=== PATIENT | female | born 1970 | race Asian ===

== ENCOUNTER 2017-01-13 08:33 | Emergency (ER) | payer SELFPAY ==
[~2017-01-13] VITALS: Ht 157.5 cm; Wt 64.5 kg
[~2017-01-13 08:33] MED LIST: NOCURR
[2017-01-13] MEDS ORDERED: KETOROLAC TROMETHAMINE 30 MG/ML VIAL IVP ONE (10:45)
[2017-01-13 10:54] LABS: BASOPHILS % (AUTO) 0.7 % (0.0-2.0); EOSINOPHILS % (AUTO) 2.7 % (1.0-6.0); HEMATOCRIT 41.4 % (36-46); HEMOGLOBIN 13.5 g/dL (12.0-16.0); LYMPHOCYTES # (AUTO) 2.2 K/uL (1.0-4.8); LYMPHOCYTES % (AUTO) 30.1 % (22.0-44.0); MEAN CORPUSCULAR HEMOGLOBIN 30.8 pg (26.0-34.0); MEAN CORPUSCULAR HGB CONC 32.7 G/dL (31.0-37.0); MEAN CORPUSCULAR VOLUME 94 fL (80-100); MONOCYTES # (AUTO) 0.4 K/uL (0.1-1.0); MONOCYTES % (AUTO) 5.8 % (2.0-9.0); NEUTROPHILS # (AUTO) 4.3 K/uL (1.8-7.7); NEUTROPHILS % (AUTO) 60.7 % (40.0-70.0); PLATELET COUNT (AUTO) 273 K/uL (150-450); RED BLOOD CELL COUNT(AUTO) 4.39 MIL/uL (4.00-5.20); RED CELL DISTRIBUTION WIDTH 12.2 % (11.5-14.5); WHITE BLOOD COUNT (AUTO) 7.1 K/uL (4.5-11.0)
[2017-01-13 11:07] LABS: ANION GAP 11 mmol/L (8-16); CALCIUM, TOTAL 7.9 mg/dL (8.8-10.5); CARBON DIOXIDE 27 mmol/L (22-29); CHLORIDE 103 mmol/L (98-107); GLOMERULAR FILTR. RATE CALC > 60 mL/min (>60); POTASSIUM 3.6 mmol/L (3.5-5.1); SODIUM SERUM 141 mmol/L (136-145); UREA NITROGEN, BLOOD 8 mg/dL (7-18)
[2017-01-13 11:32] LABS: ALANINE AMINOTRANSFERASE 20 U/L (12-78); ALBUMIN 3.9 g/dL (3.4-5.0); ASPARTATE AMINOTRANSFERASE 17 U/L (15-37); BILIRUBIN,TOTAL 0.2 mg/dL (0.1-1.0); CREATINE KINASE, TOTAL 135 U/L (26-192); TOTAL PROTEIN, SERUM 8.4 g/dL (6.4-8.2)
[2017-01-13 11:34] LABS: CREATINE KINASE MB < 0.5 ng/mL (0-5)
[2017-01-13] MEDS ORDERED: CALCIUM GLUCONATE 1,000 MG in DEXTROSE 5%-WATER 50 ML IV ONE (11:45)
[2017-01-13 13:01] VITALS: BP 124/78
== END 2017-01-13 13:12 | disposition home or self-care (01) ==
LOC: EMS 08:36
DX: M62.838 Other muscle spasm (principal); M48.02 Spinal stenosis, cervical region; E83.51 Hypocalcemia; F17.210 Nicotine dependence, cigarettes, uncomplicated
CPT/HCPCS: 36415; 70450; 72125; 80053; 82550; 82553; 83735; 84703; 85025; 93005; 96365; 96375; 99285; J0610; J1885; J7060

== ENCOUNTER 2017-07-20 22:14 | Emergency (ER) | payer SELFPAY ==
[~2017-07-20] VITALS: Ht 154.9 cm; Wt 59.1 kg
[2017-07-20 23:59] LABS: BASOPHILS % (AUTO) 0.8 % (0.0-2.0); EOSINOPHILS % (AUTO) 0.9 % (1.0-6.0); HEMATOCRIT 40.8 % (36-46); HEMOGLOBIN 13.8 g/dL (12.0-16.0); LYMPHOCYTES # (AUTO) 3.5 K/uL (1.0-4.8); LYMPHOCYTES % (AUTO) 46.8 % (22.0-44.0); MEAN CORPUSCULAR HEMOGLOBIN 31.9 pg (26.0-34.0); MEAN CORPUSCULAR HGB CONC 33.8 G/dL (31.0-37.0); MEAN CORPUSCULAR VOLUME 95 fL (80-100); MONOCYTES # (AUTO) 0.6 K/uL (0.1-1.0); MONOCYTES % (AUTO) 7.7 % (2.0-9.0); NEUTROPHILS # (AUTO) 3.3 K/uL (1.8-7.7); NEUTROPHILS % (AUTO) 43.8 % (40.0-70.0); PLATELET COUNT (AUTO) 248 K/uL (150-450); RED BLOOD CELL COUNT(AUTO) 4.32 MIL/uL (4.00-5.20); RED CELL DISTRIBUTION WIDTH 12.7 % (11.5-14.5); WHITE BLOOD COUNT (AUTO) 7.6 K/uL (4.5-11.0)
[2017-07-21 00:03] LABS: ANION GAP 16 mmol/L (8-16); CALCIUM, TOTAL 8.6 mg/dL (8.8-10.5); CARBON DIOXIDE 20 mmol/L (22-29); CHLORIDE 104 mmol/L (98-107); CREATININE 0.74 mg/dL (0.60-1.30); GLOMERULAR FILTR. RATE CALC > 60 mL/min (>60); POTASSIUM 3.4 mmol/L (3.5-5.1); SODIUM SERUM 140 mmol/L (136-145); UREA NITROGEN, BLOOD 10 mg/dL (7-18)
[2017-07-21 00:09] LABS: ALANINE AMINOTRANSFERASE 55 U/L (12-78); ALBUMIN 4.3 g/dL (3.4-5.0); ASPARTATE AMINOTRANSFERASE 52 U/L (15-37); BILIRUBIN,TOTAL 0.2 mg/dL (0.1-1.0)
[2017-07-21 04:12] VITALS: BP 122/81
== END 2017-07-21 04:14 | disposition home or self-care (01) ==
LOC: EMS 22:15
DX: R45.851 Suicidal ideations (principal); F10.129 Alcohol abuse with intoxication, unspecified; Y90.8 Blood alcohol level of 240 mg/100 ml or more
CPT/HCPCS: 36415; 80053; 80307; 85025; 99285; 99406; G0480

== ENCOUNTER 2021-05-19 07:24 | Emergency (ER) | payer OTHER ==
[~2021-05-19] VITALS: Ht 162.6 cm; Wt 63.6 kg
[2021-05-19] MEDS ORDERED: AMLO2.5T96 PO (09:28)
[2021-05-19 09:35] LABS: BASOPHILS % (AUTO) 0.7 % (0.0-2.0); EOSINOPHILS % (AUTO) 1.4 % (1.0-6.0); HEMATOCRIT 39.6 % (36-46); HEMOGLOBIN 13.2 g/dL (12.0-16.0); LYMPHOCYTES # (AUTO) 3.3 K/uL (1.0-4.8); MEAN CORPUSCULAR HGB CONC 33.3 G/dL (31.0-37.0); MEAN CORPUSCULAR VOLUME 90 fL (80-100); MONOCYTES # (AUTO) 0.5 K/uL (0.1-1.0); MONOCYTES % (AUTO) 7.5 % (2.0-9.0); NEUTROPHILS # (AUTO) 3.2 K/uL (1.8-7.7); NEUTROPHILS % (AUTO) 44.4 % (40.0-70.0); PLATELET COUNT (AUTO) 287 K/uL (150-450)
[2021-05-19 09:45] LABS: ANION GAP 11 mmol/L (8-16); CALCIUM, TOTAL 8.3 mg/dL (8.8-10.5); CARBON DIOXIDE 23 mmol/L (22-29); CHLORIDE 105 mmol/L (98-107); CREATININE 0.66 mg/dL (0.60-1.30); GLOMERULAR FILTR. RATE CALC > 60 mL/min (>60); GLUCOSE,RANDOM 90 mg/dL (70-110); POTASSIUM 3.6 mmol/L (3.5-5.1); SODIUM SERUM 139 mmol/L (136-145); UREA NITROGEN, BLOOD 15 mg/dL (7-18)
[2021-05-19 09:57] LABS: ALANINE AMINOTRANSFERASE 26 U/L (12-78); ALBUMIN 3.7 g/dL (3.4-5.0); ALKALINE PHOSPHATASE 60 U/L (46-116); ASPARTATE AMINOTRANSFERASE 18 U/L (15-37); BILIRUBIN,TOTAL 0.2 mg/dL (0.1-1.0); HCG,QUANTITATIVE < 1 mIU/mL (0-6); TOTAL PROTEIN, SERUM 8.7 g/dL (6.4-8.2)
[2021-05-19 10:25] VITALS: BP 111/64
[2021-05-19] MEDS ORDERED: KETOROLAC TROMETHAMINE 30 MG/ML VIAL IVP ONE (10:30)
== END 2021-05-19 10:38 | disposition home or self-care (01) ==
LOC: EMS 07:27
DX: M25.572 Pain in left ankle and joints of left foot (principal); M79.622 Pain in left upper arm; F41.9 Anxiety disorder, unspecified; F17.210 Nicotine dependence, cigarettes, uncomplicated; Z87.828 Personal history of other (healed) physical injury and trauma
CPT/HCPCS: 36415; 71045; 80053; 84484; 84702; 85025; 93005; 96374; 99285; J1885

== ENCOUNTER 2021-08-05 00:58 | Emergency (ER) | payer OTHER ==
[~2021-08-05] VITALS: Ht 162.6 cm; Wt 68.2 kg
[~2021-08-05 00:58] MED LIST changes: +AMLO2.5T96 PO; -NOCURR
[2021-08-05] MEDS ORDERED: SODIUM CHLORIDE 0.9% 1,000 ML IV ONE (02:30)
[2021-08-05] MEDS ORDERED: ACETAMINOPHEN 500 MG TABLET PO ONE (02:30)
[2021-08-05] MEDS ORDERED: ONDANSETRON HCL 4 MG/2 ML VIAL IVP ONE (02:30)
[2021-08-05] MEDS ORDERED: DiphenhydrAMINE HCL 50 MG/ML VIAL IVP ONE (02:30)
[2021-08-05] MEDS ORDERED: METOCLOPRAMIDE HCL 5 MG/ML 2 ML VIAL IVP ONE (02:30)
[2021-08-05 02:51] LABS: BASOPHILS % (AUTO) 1.1 % (0.0-2.0); EOSINOPHILS % (AUTO) 0.9 % (1.0-6.0); HEMATOCRIT 40.4 % (36-46); HEMOGLOBIN 13.7 g/dL (12.0-16.0); LYMPHOCYTES # (AUTO) 3.3 K/uL (1.0-4.8); LYMPHOCYTES % (AUTO) 34.8 % (22.0-44.0); MEAN CORPUSCULAR HEMOGLOBIN 29.9 pg (26.0-34.0); MEAN CORPUSCULAR HGB CONC 33.9 G/dL (31.0-37.0); MEAN CORPUSCULAR VOLUME 88 fL (80-100); MONOCYTES # (AUTO) 0.6 K/uL (0.1-1.0); MONOCYTES % (AUTO) 6.3 % (2.0-9.0); NEUTROPHILS # (AUTO) 5.4 K/uL (1.8-7.7); NEUTROPHILS % (AUTO) 56.9 % (40.0-70.0); PLATELET COUNT (AUTO) 364 K/uL (150-450); RED BLOOD CELL COUNT(AUTO) 4.57 MIL/uL (4.00-5.20); RED CELL DISTRIBUTION WIDTH 13.7 % (11.5-14.5)
[2021-08-05 02:57] LABS: ANION GAP 10 mmol/L (8-16); CALCIUM, TOTAL 8.9 mg/dL (8.8-10.5); CARBON DIOXIDE 29 mmol/L (22-29); CHLORIDE 106 mmol/L (98-107); CREATININE 0.59 mg/dL (0.60-1.30); GLOMERULAR FILTR. RATE CALC > 60 mL/min (>60); GLUCOSE,RANDOM 120 mg/dL (70-110); SODIUM SERUM 145 mmol/L (136-145); UREA NITROGEN, BLOOD 12 mg/dL (7-18)
[2021-08-05 03:18] LABS: B-TYPE NATRIURETIC PEPTIDE 33 pg/mL (0-100)
[2021-08-05 03:23] LABS: ALANINE AMINOTRANSFERASE 31 U/L (12-78); ALKALINE PHOSPHATASE 65 U/L (46-116); ASPARTATE AMINOTRANSFERASE 23 U/L (15-37); BILIRUBIN,TOTAL 0.1 mg/dL (0.1-1.0); CREATINE KINASE, TOTAL ONLY 118 U/L (26-192); HCG,QUANTITATIVE < 1 mIU/mL (0-6); TOTAL PROTEIN, SERUM 9.4 g/dL (6.4-8.2)
[2021-08-05 05:40] VITALS: BP 123/82
== END 2021-08-05 05:49 | disposition home or self-care (01) ==
LOC: EMS 01:01
DX: R51.9 Headache, unspecified (principal); F41.9 Anxiety disorder, unspecified; C71.9 Malignant neoplasm of brain, unspecified; F17.210 Nicotine dependence, cigarettes, uncomplicated
CPT/HCPCS: 36415; 70450; 80053; 82550; 83880; 84484; 84702; 85025; 93005; 96361; 96374; 96375; 99285; G0480; J1200; J2405; J2765; J7030

== ENCOUNTER 2021-08-21 15:06 | Inpatient (IN) | payer MEDICAID, OTHER ==
[~2021-08-21] VITALS: Ht 162.6 cm; Wt 68.2 kg
[2021-08-21 18:56] LABS: BASOPHILS % (AUTO) 1.2 % (0.0-2.0); EOSINOPHILS % (AUTO) 1.6 % (1.0-6.0); HEMATOCRIT 40.4 % (36-46); HEMOGLOBIN 13.5 g/dL (12.0-16.0); LYMPHOCYTES # (AUTO) 3.8 K/uL (1.0-4.8); LYMPHOCYTES % (AUTO) 41.6 % (22.0-44.0); MEAN CORPUSCULAR HEMOGLOBIN 29.9 pg (26.0-34.0); MEAN CORPUSCULAR HGB CONC 33.5 G/dL (31.0-37.0); MEAN CORPUSCULAR VOLUME 89 fL (80-100); MONOCYTES # (AUTO) 0.5 K/uL (0.1-1.0); NEUTROPHILS # (AUTO) 4.6 K/uL (1.8-7.7); NEUTROPHILS % (AUTO) 50.6 % (40.0-70.0); PLATELET COUNT (AUTO) 342 K/uL (150-450); RED BLOOD CELL COUNT(AUTO) 4.53 MIL/uL (4.00-5.20); RED CELL DISTRIBUTION WIDTH 13.1 % (11.5-14.5)
[2021-08-21 19:06] LABS: ANION GAP 15 mmol/L (8-16); CALCIUM, TOTAL 8.6 mg/dL (8.8-10.5); CARBON DIOXIDE 21 mmol/L (22-29); CHLORIDE 107 mmol/L (98-107); CREATININE 0.68 mg/dL (0.60-1.30); GLOMERULAR FILTR. RATE CALC > 60 mL/min (>60); GLUCOSE,RANDOM 76 mg/dL (70-110); POTASSIUM 3.8 mmol/L (3.5-5.1); SODIUM SERUM 143 mmol/L (136-145); UREA NITROGEN, BLOOD 11 mg/dL (7-18)
[2021-08-21 19:12] LABS: ALANINE AMINOTRANSFERASE 26 U/L (12-78); ALBUMIN 3.9 g/dL (3.4-5.0); ALKALINE PHOSPHATASE 69 U/L (46-116); ASPARTATE AMINOTRANSFERASE 23 U/L (15-37); BILIRUBIN,TOTAL 0.1 mg/dL (0.1-1.0); TOTAL PROTEIN, SERUM 9.2 g/dL (6.4-8.2)
[2021-08-21] MEDS ORDERED: ZOLPIDEM TARTRATE 10 MG TABLET PO PRN (19:15)
[2021-08-21] MEDS ORDERED: QUEtiapine FUMARATE 100 MG TABLET PO PRN (19:15)
[2021-08-21] MEDS ORDERED: ACETAMINOPHEN 500 MG TABLET PO ONE (19:30)
[2021-08-21 19:42] LABS: COVID AG,FIA SOURCE NASOPHARYNGEAL
[2021-08-21] MEDS: LORazepam 2 MG TABLET PO PRN (19:49)
[2021-08-21 20:11] LABS: AMPHET/METH SCREEN,URINE NEGATIVE (NEGATIVE); BARBITURATE SCREEN, URINE NEGATIVE (NEGATIVE); BENZODIAZEPINES SCREEN,URINE NEGATIVE (NEGATIVE); CANNABINOID SCREEN,URINE NEGATIVE (NEGATIVE); COCAINE SCREEN,URINE NEGATIVE (NEGATIVE); METHADONE SCREEN, URINE NEGATIVE (NEGATIVE); OPIATE SCREEN,URINE NEGATIVE (NEGATIVE)
[2021-08-21 20:12] LABS: PHENCYCLIDINE SCREEN,URINE NEGATIVE (NEGATIVE)
[2021-08-21 21:28] VITALS: BP 113/71
[2021-08-22 07:21] LABS: CHOL/HDL RATIO 3.9 (3.9-5.7)
[2021-08-22 09:57] VITALS: BP 137/68
[2021-08-22] MEDS ORDERED: NICOTINE 14 MG/24 HOUR PATCH TD PRN (10:00)
[2021-08-22] MEDS ORDERED: MAGNESIUM HYDROXIDE SUSPENSION 30 ML UDCUP PO PRN (10:00)
[2021-08-22] MEDS ORDERED: ACETAMINOPHEN 325 MG TABLET PO PRN (10:00)
[2021-08-22] MEDS ORDERED: ONDANSETRON HCL 4 MG TABLET PO PRN (10:00)
[2021-08-22] MEDS ORDERED: DOCUSATE SODIUM 100 MG CAPSULE PO PRN (10:00)
[2021-08-22] MEDS ORDERED: IBUPROFEN 400 MG TABLET PO PRN (10:00)
[2021-08-22] MEDS ORDERED: PETROLATUM,WHITE 28 GM JELLY TP PRN (10:00)
[2021-08-22] MEDS ORDERED: ALBUTEROL SULFATE HFA 90 MCG/PUFF 8 GM INHALER IH PRN (10:00)
[2021-08-22] MEDS ORDERED: CloNIDine HCL 0.1 MG TABLET PO PRN (10:00)
[2021-08-22] MEDS ORDERED: LOPERAMIDE HCL 2 MG CAPSULE PO PRN (10:00)
[2021-08-22] MEDS ORDERED: GuaiFENesin/D-METHORPHAN [SUGAR-FREE] 200-20MG/10 ML SYRUP UDCUP PO PRN (10:00)
[2021-08-22] MEDS ORDERED: MAG HYDROX/AL HYDROX/SIMETH ES 30 ML SUSPENSION UDCUP PO PRN (10:00)
[2021-08-22] MEDS: ESCITALOPRAM OXALATE 10 MG TABLET PO SCH (10:06)
[2021-08-22 16:45] VITALS: BP 12/72
[2021-08-23 06:25] VITALS: BP 132/80
[2021-08-23] MEDS: ESCITALOPRAM OXALATE 10 MG TABLET PO SCH (08:40)
[2021-08-23] MEDS: AmLODIPine BESYLATE 2.5 MG TABLET PO SCH (08:40)
[2021-08-23 08:45] VITALS: BP 126/76
[2021-08-23] MEDS: LORazepam 2 MG TABLET PO PRN (10:15)
[2021-08-24] MEDS: ESCITALOPRAM OXALATE 10 MG TABLET PO SCH (08:24)
[2021-08-24] MEDS: AmLODIPine BESYLATE 2.5 MG TABLET PO SCH (08:24)
[2021-08-24 09:26] VITALS: BP 132/92
[2021-08-24] MEDS ORDERED: ESCI10 PO (15:50)
[2021-08-24] MEDS ORDERED: AMLO2.5T96 PO (15:50)
== END 2021-08-24 17:00 | disposition home or self-care (01) | DRG 751 ==
LOC: EMS 15:06 → 3EI 20:56
PROVIDERS: ADMIT Psychiatry & Neurology Child & Adolescent Psychiatry; ATTEND Psychiatry & Neurology Child & Adolescent Psychiatry
DX: F33.2 Major depressive disorder, recurrent severe without psychotic features (principal); R45.851 Suicidal ideations; E78.5 Hyperlipidemia, unspecified; F10.10 Alcohol abuse, uncomplicated; F41.0 Panic disorder [episodic paroxysmal anxiety]; G44.209 Tension-type headache, unspecified, not intractable; I10 Essential (primary) hypertension; F41.9 Anxiety disorder, unspecified; Y90.7 Blood alcohol level of 200-239 mg/100 ml; Z20.822 Contact with and (suspected) exposure to COVID-19; Z79.899 Other long term (current) drug therapy; Z87.891 Personal history of nicotine dependence
CPT/HCPCS: 80053; 80061; 85025; 97530; 99285; G0480; Q0162

== ENCOUNTER 2021-09-24 16:56 | Inpatient (IN) | payer MEDICAID, OTHER ==
[~2021-09-24] VITALS: Ht 162.6 cm; Wt 66.5 kg
[~2021-09-24 16:56] MED LIST changes: +ESCI10 PO
[2021-09-24 18:12] LABS: EOSINOPHILS % (AUTO) 1.3 % (1.0-6.0); HEMATOCRIT 42.6 % (36-46); HEMOGLOBIN 14.2 g/dL (12.0-16.0); LYMPHOCYTES # (AUTO) 2.6 K/uL (1.0-4.8); LYMPHOCYTES % (AUTO) 35.7 % (22.0-44.0); MEAN CORPUSCULAR HEMOGLOBIN 29.6 pg (26.0-34.0); MEAN CORPUSCULAR HGB CONC 33.5 G/dL (31.0-37.0); MEAN CORPUSCULAR VOLUME 88 fL (80-100); MONOCYTES # (AUTO) 0.4 K/uL (0.1-1.0); MONOCYTES % (AUTO) 5.7 % (2.0-9.0); NEUTROPHILS # (AUTO) 4.1 K/uL (1.8-7.7); NEUTROPHILS % (AUTO) 56.3 % (40.0-70.0); PLATELET COUNT (AUTO) 316 K/uL (150-450); RED BLOOD CELL COUNT(AUTO) 4.82 MIL/uL (4.00-5.20); RED CELL DISTRIBUTION WIDTH 13.5 % (11.5-14.5)
[2021-09-24 18:30] LABS: ANION GAP 13 mmol/L (8-16); CALCIUM, TOTAL 8.6 mg/dL (8.8-10.5); CARBON DIOXIDE 25 mmol/L (22-29); CHLORIDE 106 mmol/L (98-107); CREATININE 0.67 mg/dL (0.60-1.30); GLOMERULAR FILTR. RATE CALC > 60 mL/min (>60); GLUCOSE,RANDOM 110 mg/dL (70-110); POTASSIUM 3.5 mmol/L (3.5-5.1); SODIUM SERUM 144 mmol/L (136-145); UREA NITROGEN, BLOOD 9 mg/dL (7-18)
[2021-09-24 18:37] LABS: ACETAMINOPHEN < 2 mcg/mL (10-30); ALANINE AMINOTRANSFERASE 35 U/L (12-78); ALBUMIN 4.2 g/dL (3.4-5.0); ALKALINE PHOSPHATASE 84 U/L (46-116); ASPARTATE AMINOTRANSFERASE 26 U/L (15-37); BILIRUBIN,TOTAL 0.1 mg/dL (0.1-1.0); TOTAL PROTEIN, SERUM 9.8 g/dL (6.4-8.2)
[2021-09-24 19:06] LABS: SALICYLATE 0.7 mg/dL (2.8-20.0)
[2021-09-24 19:48] LABS: APPEARANCE,URINE CLEAR (CLEAR); BILIRUBIN,URINE NEGATIVE (NEGATIVE); GLUCOSE, URINE (UA) NEGATIVE (NEGATIVE); KETONES,URINE NEGATIVE (NEGATIVE); LEUKOCYTE ESTERASE ,URINE TRACE (NEGATIVE); NITRATE,URINE NEGATIVE (NEGATIVE); OCCULT BLOOD,URINE TRACE (NEGATIVE); PROTEIN,URINE NEGATIVE (NEGATIVE); UROBILINOGEN,URINE 0.2 mg/dL (<=1.0)
[2021-09-24 19:55] LABS: AMPHET/METH SCREEN,URINE NEGATIVE (NEGATIVE); BARBITURATE SCREEN, URINE NEGATIVE (NEGATIVE); BENZODIAZEPINES SCREEN,URINE NEGATIVE (NEGATIVE); CANNABINOID SCREEN,URINE NEGATIVE (NEGATIVE); COCAINE SCREEN,URINE NEGATIVE (NEGATIVE); METHADONE SCREEN, URINE NEGATIVE (NEGATIVE); OPIATE SCREEN,URINE NEGATIVE (NEGATIVE)
[2021-09-24 19:58] LABS: PHENCYCLIDINE SCREEN,URINE NEGATIVE (NEGATIVE)
[2021-09-24 20:03] LABS: BACTERIA,URINE Few /HPF (None Seen); WBC,URINE 0-2 /HPF (0-5)
[2021-09-24 21:28] LABS: COVID AG,FIA SOURCE NASOPHARYNGEAL
[2021-09-24] MEDS ORDERED: QUEtiapine FUMARATE 100 MG TABLET PO PRN (22:00)
[2021-09-24] MEDS ORDERED: ZOLPIDEM TARTRATE 10 MG TABLET PO PRN (22:00)
[2021-09-24 22:37] LABS: APPEARANCE,URINE CLEAR (CLEAR); BILIRUBIN,URINE NEGATIVE (NEGATIVE); GLUCOSE, URINE (UA) NEGATIVE (NEGATIVE); KETONES,URINE NEGATIVE (NEGATIVE); LEUKOCYTE ESTERASE ,URINE SMALL (NEGATIVE); NITRATE,URINE NEGATIVE (NEGATIVE); OCCULT BLOOD,URINE TRACE (NEGATIVE); PROTEIN,URINE NEGATIVE (NEGATIVE); UROBILINOGEN,URINE 0.2 mg/dL (<=1.0)
[2021-09-24 22:41] LABS: BACTERIA,URINE Few /HPF (None Seen); WBC,URINE 0-2 /HPF (0-5)
[2021-09-25] MEDS: LORazepam 2 MG TABLET PO PRN ×2 (01:24→12:18)
[2021-09-25 01:39] LABS: CHOL/HDL RATIO 3.6 (3.9-5.7)
[2021-09-25 03:04] VITALS: BP 134/73
[2021-09-25] MEDS ORDERED: PNEUMOCOCCAL VACCINE POLYVALENT 0.5 ML VIAL [PPSV23] IM. ONE (03:30)
[2021-09-25] MEDS ORDERED: INFLUENZA VIRUS VACCINE QVS 2021-22 (6MO+)/PF 60 MCG/0.5 ML SYRINGE IM. ONE (03:30)
[2021-09-25 08:20] VITALS: BP 125/76
[2021-09-25] MEDS ORDERED: MAGNESIUM HYDROXIDE SUSPENSION 30 ML UDCUP PO PRN (11:30)
[2021-09-25] MEDS ORDERED: PETROLATUM,WHITE 28 GM JELLY TP PRN (11:30)
[2021-09-25] MEDS ORDERED: ACETAMINOPHEN 325 MG TABLET PO PRN (11:30)
[2021-09-25] MEDS ORDERED: ALBUTEROL SULFATE HFA 90 MCG/PUFF 8 GM INHALER IH PRN (11:30)
[2021-09-25] MEDS ORDERED: NICOTINE 14 MG/24 HOUR PATCH TD PRN (11:30)
[2021-09-25] MEDS ORDERED: ONDANSETRON HCL 4 MG TABLET PO PRN (11:30)
[2021-09-25] MEDS ORDERED: DOCUSATE SODIUM 100 MG CAPSULE PO PRN (11:30)
[2021-09-25] MEDS ORDERED: LOPERAMIDE HCL 2 MG CAPSULE PO PRN (11:30)
[2021-09-25] MEDS ORDERED: MAG HYDROX/AL HYDROX/SIMETH ES 30 ML SUSPENSION UDCUP PO PRN (11:30)
[2021-09-25] MEDS ORDERED: GuaiFENesin/D-METHORPHAN [SUGAR-FREE] 200-20MG/10 ML SYRUP UDCUP PO PRN (11:30)
[2021-09-25] MEDS ORDERED: CloNIDine HCL 0.1 MG TABLET PO PRN (11:30)
[2021-09-25] MEDS: ESCITALOPRAM OXALATE 10 MG TABLET PO SCH (12:18)
[2021-09-25 16:23] VITALS: BP 105/77
[2021-09-26 06:01] VITALS: BP 124/73
[2021-09-26] MEDS: IBUPROFEN 400 MG TABLET PO PRN (08:53)
[2021-09-26] MEDS: LORazepam 2 MG TABLET PO PRN (08:53)
[2021-09-26 08:54] VITALS: BP 121/75
[2021-09-26] MEDS: ESCITALOPRAM OXALATE 10 MG TABLET PO SCH (08:54)
[2021-09-26] MEDS: AmLODIPine BESYLATE 2.5 MG TABLET PO SCH (08:54)
[2021-09-26 16:33] VITALS: BP 109/85
[2021-09-27 06:05] VITALS: BP 121/70
[2021-09-27 08:03] VITALS: BP 125/60
[2021-09-27] MEDS: IBUPROFEN 400 MG TABLET PO PRN (08:03)
[2021-09-27] MEDS: AmLODIPine BESYLATE 2.5 MG TABLET PO SCH (08:04)
[2021-09-27] MEDS: ESCITALOPRAM OXALATE 10 MG TABLET PO SCH (08:04)
[2021-09-27 08:48] VITALS: BP 125/60
[2021-09-27 16:27] VITALS: BP 117/73
== END 2021-09-27 17:30 | disposition home or self-care (01) | DRG 751 ==
LOC: EMS 16:56 → B2S 09-25 00:30
PROVIDERS: ADMIT Psychiatry & Neurology Psychiatry; ATTEND Psychiatry & Neurology Child & Adolescent Psychiatry
DX: F33.2 Major depressive disorder, recurrent severe without psychotic features (principal); R45.851 Suicidal ideations; Z91.14 Patient's other noncompliance with medication regimen; E78.5 Hyperlipidemia, unspecified; Z20.822 Contact with and (suspected) exposure to COVID-19; F10.129 Alcohol abuse with intoxication, unspecified; F41.9 Anxiety disorder, unspecified; G47.00 Insomnia, unspecified; I10 Essential (primary) hypertension; Y90.8 Blood alcohol level of 240 mg/100 ml or more
CPT/HCPCS: 80053; 80061; 81001; 85025; 90686; 90732; 99285; G0480; G0481

== ENCOUNTER 2021-09-28 21:19 | Emergency (ER) | payer MEDICAID, OTHER ==
[~2021-09-28] VITALS: Ht 162.6 cm; Wt 68.2 kg
[2021-09-28 23:19] VITALS: BP 138/76
[2021-09-28 23:26] LABS: BASOPHILS % (AUTO) 0.5 % (0.0-2.0); EOSINOPHILS % (AUTO) 0.8 % (1.0-6.0); HEMATOCRIT 39.3 % (36-46); HEMOGLOBIN 13.5 g/dL (12.0-16.0); LYMPHOCYTES # (AUTO) 2.7 K/uL (1.0-4.8); LYMPHOCYTES % (AUTO) 27.5 % (22.0-44.0); MEAN CORPUSCULAR HEMOGLOBIN 29.9 pg (26.0-34.0); MEAN CORPUSCULAR HGB CONC 34.3 G/dL (31.0-37.0); MEAN CORPUSCULAR VOLUME 87 fL (80-100); MONOCYTES # (AUTO) 0.6 K/uL (0.1-1.0); MONOCYTES % (AUTO) 6.5 % (2.0-9.0); NEUTROPHILS # (AUTO) 6.2 K/uL (1.8-7.7); NEUTROPHILS % (AUTO) 64.7 % (40.0-70.0); PLATELET COUNT (AUTO) 307 K/uL (150-450); RED CELL DISTRIBUTION WIDTH 13.8 % (11.5-14.5)
[2021-09-28 23:38] LABS: ANION GAP 7 mmol/L (8-16); CALCIUM, TOTAL 9.4 mg/dL (8.8-10.5); CARBON DIOXIDE 27 mmol/L (22-29); CHLORIDE 103 mmol/L (98-107); GLOMERULAR FILTR. RATE CALC > 60 mL/min (>60); GLUCOSE,RANDOM 108 mg/dL (70-110); POTASSIUM 4.2 mmol/L (3.5-5.1); SODIUM SERUM 137 mmol/L (136-145); UREA NITROGEN, BLOOD 9 mg/dL (7-18)
[2021-09-28 23:46] LABS: COVID AG,FIA SOURCE NASOPHARYNGEAL
[2021-09-28 23:49] LABS: ALANINE AMINOTRANSFERASE 44 U/L (12-78); ALBUMIN 3.9 g/dL (3.4-5.0); ALKALINE PHOSPHATASE 81 U/L (46-116); ASPARTATE AMINOTRANSFERASE 36 U/L (15-37); BILIRUBIN,TOTAL 0.1 mg/dL (0.1-1.0); HCG,QUANTITATIVE < 1 mIU/mL (0-6); TOTAL PROTEIN, SERUM 9.7 g/dL (6.4-8.2)
== END 2021-09-29 02:52 | disposition home or self-care (01) ==
LOC: EMS 21:27
DX: F10.129 Alcohol abuse with intoxication, unspecified (principal); F32.9 Major depressive disorder, single episode, unspecified; F41.9 Anxiety disorder, unspecified; F17.210 Nicotine dependence, cigarettes, uncomplicated; Z79.899 Other long term (current) drug therapy; Z20.822 Contact with and (suspected) exposure to COVID-19; Y90.6 Blood alcohol level of 120-199 mg/100 ml
CPT/HCPCS: 36415; 80053; 84702; 85025; 87426; 99285; G0480

== ENCOUNTER 2022-01-28 13:22 | Inpatient (IN) | payer MEDICAID, OTHER ==
[~2022-01-28] VITALS: Ht 162.6 cm; Wt 68.0 kg
[2022-01-28 14:33] LABS: BASOPHILS % (AUTO) 1.1 % (0.0-2.0); EOSINOPHILS % (AUTO) 1.4 % (1.0-6.0); HEMATOCRIT 37.7 % (36-46); HEMOGLOBIN 12.5 g/dL (12.0-16.0); LYMPHOCYTES # (AUTO) 3.3 K/uL (1.0-4.8); LYMPHOCYTES % (AUTO) 47.3 % (22.0-44.0); MEAN CORPUSCULAR HGB CONC 33.3 G/dL (31.0-37.0); MEAN CORPUSCULAR VOLUME 87 fL (80-100); MONOCYTES # (AUTO) 0.5 K/uL (0.1-1.0); MONOCYTES % (AUTO) 6.8 % (2.0-9.0); NEUTROPHILS % (AUTO) 43.4 % (40.0-70.0); PLATELET COUNT (AUTO) 379 K/uL (150-450); RED BLOOD CELL COUNT(AUTO) 4.32 MIL/uL (4.00-5.20); RED CELL DISTRIBUTION WIDTH 13.3 % (11.5-14.5)
[2022-01-28 14:44] LABS: ANION GAP 10 mmol/L (8-16); CALCIUM, TOTAL 8.1 mg/dL (8.8-10.5); CARBON DIOXIDE 25 mmol/L (22-29); CHLORIDE 103 mmol/L (98-107); GLOMERULAR FILTR. RATE CALC > 60 mL/min (>60); GLUCOSE,RANDOM 79 mg/dL (70-110); POTASSIUM 3.7 mmol/L (3.5-5.1); SODIUM SERUM 138 mmol/L (136-145); UREA NITROGEN, BLOOD 13 mg/dL (7-18)
[2022-01-28 14:49] LABS: ALANINE AMINOTRANSFERASE 27 U/L (12-78); ALBUMIN 3.7 g/dL (3.4-5.0); ALKALINE PHOSPHATASE 69 U/L (46-116); ASPARTATE AMINOTRANSFERASE 28 U/L (15-37); BILIRUBIN,TOTAL 0.2 mg/dL (0.1-1.0); TOTAL PROTEIN, SERUM 8.8 g/dL (6.4-8.2)
[2022-01-28 15:08] LABS: AMPHET/METH SCREEN,URINE NEGATIVE (NEGATIVE); BARBITURATE SCREEN, URINE NEGATIVE (NEGATIVE); BENZODIAZEPINES SCREEN,URINE POSITIVE (NEGATIVE); CANNABINOID SCREEN,URINE POSITIVE (NEGATIVE); COCAINE SCREEN,URINE NEGATIVE (NEGATIVE); METHADONE SCREEN, URINE NEGATIVE (NEGATIVE); OPIATE SCREEN,URINE NEGATIVE (NEGATIVE)
[2022-01-28 15:11] LABS: PHENCYCLIDINE SCREEN,URINE NEGATIVE (NEGATIVE)
[2022-01-28] MEDS ORDERED: OLANZapine 5 MG RAPDIS TABLET PO PRN (15:45)
[2022-01-28] MEDS ORDERED: LORazepam 2 MG TABLET PO PRN (15:45)
[2022-01-28] MEDS ORDERED: ESCI20TA37 PO (15:45)
[2022-01-28] MEDS ORDERED: ZOLPIDEM TARTRATE 10 MG TABLET PO PRN (15:45)
[2022-01-28 17:56] LABS: COVID AG,FIA SOURCE NASAL SWAB
[2022-01-28 19:05] VITALS: BP 137/66
[2022-01-28] MEDS ORDERED: LORazepam 2 MG/ML VIAL IM ONE (20:00)
[2022-01-28] MEDS ORDERED: ONDANSETRON HCL 4 MG/2 ML VIAL IM ONE (20:00)
[2022-01-28] MEDS ORDERED: CYANOCOBALAMIN 1,000 MCG/ML VIAL IM ONE (21:45)
[2022-01-28] MEDS ORDERED: HydrOXYzine PAMOATE 50 MG CAPSULE PO PRN (21:45)
[2022-01-28] MEDS ORDERED: TUBERCULIN, PURIFIED PROTEIN DERIVATIVE 5 TU/0.1 ML SYRINGE ID ONE (21:45)
[2022-01-28] MEDS ORDERED: DIAZEPAM 10 MG TABLET PO PRN (21:45)
[2022-01-28] MEDS ORDERED: MAGNESIUM HYDROXIDE SUSPENSION 30 ML UDCUP PO PRN (21:45)
[2022-01-28] MEDS ORDERED: LOPERAMIDE HCL 2 MG CAPSULE PO PRN ×2 (21:45)
[2022-01-28] MEDS ORDERED: MAG HYDROX/AL HYDROX/SIMETH ES 30 ML SUSPENSION UDCUP PO PRN (21:45)
[2022-01-28] MEDS ORDERED: GuaiFENesin/D-METHORPHAN [SUGAR-FREE] 200-20MG/10 ML SYRUP UDCUP PO PRN (21:45)
[2022-01-28] MEDS ORDERED: PROMETHAZINE HCL 25 MG TABLET PO PRN (21:45)
[2022-01-28 22:30] VITALS: BP 116/65
[2022-01-29] MEDS ORDERED: DIAZEPAM 10 MG TABLET PO PRN (07:00)
[2022-01-29 07:44] LABS: CHOL/HDL RATIO 3.5 (3.9-5.7); FREE T4 (FREE THYROXINE) 1.08 ng/dL (0.76-1.46); THYROID STIMULATING HORMONE 1.04 uIU/mL (0.36-3.74)
[2022-01-29] MEDS: FOLIC ACID 1 MG TABLET PO SCH (09:02)
[2022-01-29] MEDS: OMEGA-3/DHA/EPA/FISH OIL 1,000 MG CAPSULE PO SCH (09:02)
[2022-01-29] MEDS: PARoxetine HCL 20 MG TABLET PO SCH (09:02)
[2022-01-29] MEDS: THIAMINE 100 MG TABLET PO SCH ×2 (09:02→16:09)
[2022-01-29] MEDS: NALTREXONE HCL 50 MG TABLET PO SCH (09:02)
[2022-01-29] MEDS: DIAZEPAM 10 MG TABLET PO SCH ×4 (09:03→21:34)
[2022-01-29] MEDS: MULTIVITAMINS WITH MINERALS, THERAPEUTIC TABLET PO SCH (09:04)
[2022-01-29 09:49] VITALS: BP 119/70
[2022-01-29 10:00] VITALS: BP 120/71
[2022-01-29 11:05] VITALS: BP 119/70
[2022-01-29] MEDS: ACETAMINOPHEN 325 MG TABLET PO PRN (11:10)
[2022-01-29] MEDS ORDERED: ONDANSETRON HCL 4 MG/2 ML VIAL IM PRN (11:15)
[2022-01-29 16:00] VITALS: BP 121/77
[2022-01-29 18:00] VITALS: BP 116/67
[2022-01-29] MEDS ORDERED: CYANOCOBALAMIN 1,000 MCG/ML VIAL IM ONE (19:15)
[2022-01-29] MEDS: MELATONIN 5 MG TABLET PO SCH (21:34)
[2022-01-29 22:00] VITALS: BP 115/56
[2022-01-30] VITALS (8 sets, daily range): BP systolic 112–136; BP diastolic 58–76
[2022-01-30] MEDS: MULTIVITAMINS WITH MINERALS, THERAPEUTIC TABLET PO SCH (09:05)
[2022-01-30] MEDS: THIAMINE 100 MG TABLET PO SCH ×2 (09:05→16:10)
[2022-01-30] MEDS: DIAZEPAM 10 MG TABLET PO SCH ×4 (09:05→20:06)
[2022-01-30] MEDS: NALTREXONE HCL 50 MG TABLET PO SCH (09:05)
[2022-01-30] MEDS: OMEGA-3/DHA/EPA/FISH OIL 1,000 MG CAPSULE PO SCH (09:05)
[2022-01-30] MEDS: PARoxetine HCL 20 MG TABLET PO SCH (09:05)
[2022-01-30] MEDS: FOLIC ACID 1 MG TABLET PO SCH (09:05)
[2022-01-30] MEDS: ACETAMINOPHEN 325 MG TABLET PO PRN (14:20)
[2022-01-30] MEDS ORDERED: GADOTERATE MEGLUMINE 10 MMOL/20 ML VIAL IVP ONE (15:09)
[2022-01-30] MEDS ORDERED: OMEG-108 PO (19:18)
[2022-01-30] MEDS ORDERED: PARO-37 PO (19:18)
[2022-01-30] MEDS ORDERED: NALT50TA PO (19:18)
[2022-01-30] MEDS ORDERED: MELA5TAB40 PO (19:18)
[2022-01-30] MEDS: MELATONIN 5 MG TABLET PO SCH (20:06)
[2022-01-31 06:18] VITALS: BP 112/56
[2022-01-31] MEDS ORDERED: DIAZEPAM 5 MG TABLET PO PRN (07:00)
[2022-01-31] MEDS ORDERED: NALTREXONE HCL 50 MG TABLET PO SCH (09:00)
[2022-01-31] MEDS ORDERED: DIAZEPAM 5 MG TABLET PO SCH (09:00)
[2022-01-31 09:06] VITALS: BP 99/59
[2022-01-31 09:28] VITALS: BP 117/59
[2022-01-31] MEDS: ACETAMINOPHEN 325 MG TABLET PO PRN (09:32)
[2022-01-31] MEDS: THIAMINE 100 MG TABLET PO SCH (09:33)
[2022-01-31] MEDS: PARoxetine HCL 20 MG TABLET PO SCH (09:33)
[2022-01-31] MEDS: MULTIVITAMINS WITH MINERALS, THERAPEUTIC TABLET PO SCH (09:33)
[2022-01-31] MEDS: FOLIC ACID 1 MG TABLET PO SCH (09:33)
[2022-01-31] MEDS: NALTREXONE HCL 50 MG TABLET PO SCH (09:33)
[2022-01-31] MEDS: OMEGA-3/DHA/EPA/FISH OIL 1,000 MG CAPSULE PO SCH (09:33)
[2022-01-31 09:48] VITALS: BP 99/59
[2022-02-01] MEDS ORDERED: DIAZEPAM 5 MG TABLET PO PRN (07:00)
== END 2022-01-31 11:28 | disposition home or self-care (01) | DRG 754 ==
LOC: EMS 13:22 → 3EI 15:37
PROVIDERS: ADMIT Psychiatry & Neurology Psychiatry; ATTEND Psychiatry & Neurology Psychiatry
DX: F32.9 Major depressive disorder, single episode, unspecified (principal); R45.851 Suicidal ideations; E78.00 Pure hypercholesterolemia, unspecified; Z20.822 Contact with and (suspected) exposure to COVID-19; F12.90 Cannabis use, unspecified, uncomplicated; F41.9 Anxiety disorder, unspecified; F17.210 Nicotine dependence, cigarettes, uncomplicated; I10 Essential (primary) hypertension; K52.9 Noninfective gastroenteritis and colitis, unspecified; Z55.9 Problems related to education and literacy, unspecified; Z65.3 Problems related to other legal circumstances; Z59.9 Problem related to housing and economic circumstances, unspecified; Z63.9 Problem related to primary support group, unspecified
CPT/HCPCS: 80053; 80061; 83036; 84439; 84443; 85025; 86592; 99285; G0480; J2060; J2405; J3420; Q9967

== ENCOUNTER 2022-05-13 19:31 | Emergency (ER) | payer MEDICAID, OTHER ==
[~2022-05-13] VITALS: Ht 162.6 cm; Wt 72.7 kg
[~2022-05-13 19:31] MED LIST changes: -AMLO2.5T96 PO; -ESCI10 PO; +MELA5TAB40 PO; +NALT50TA PO; +OMEG-108 PO; +PARO-37 PO
[2022-05-13] MEDS ORDERED: KETOROLAC TROMETHAMINE 30 MG/ML VIAL IM ONE (20:45)
[2022-05-13 21:03] VITALS: BP 142/79
== END 2022-05-13 21:06 | disposition home or self-care (01) ==
LOC: EMS 19:39
DX: M25.572 Pain in left ankle and joints of left foot (principal); G89.29 Other chronic pain; F41.9 Anxiety disorder, unspecified; F32.A Depression, unspecified; F17.210 Nicotine dependence, cigarettes, uncomplicated; Z87.898 Personal history of other specified conditions; Z98.890 Other specified postprocedural states
CPT/HCPCS: 99283; 96372; J1885

== ENCOUNTER 2022-09-07 17:08 | Inpatient (IN) | payer MEDICAID, OTHER ==
[~2022-09-07] VITALS: Ht 162.6 cm; Wt 72.1 kg
[~2022-09-07 17:08] MED LIST changes: -OMEG-108 PO; +OMEG-135 PO
[2022-09-07 18:33] LABS: BASOPHILS % (AUTO) 0.9 % (0.0-2.0); EOSINOPHILS % (AUTO) 2.1 % (1.0-6.0); HEMOGLOBIN 12.8 g/dL (12.0-16.0); LYMPHOCYTES # (AUTO) 3.1 K/uL (1.0-4.8); LYMPHOCYTES % (AUTO) 41.6 % (22.0-44.0); MEAN CORPUSCULAR HEMOGLOBIN 29.5 pg (26.0-34.0); MEAN CORPUSCULAR HGB CONC 32.9 G/dL (31.0-37.0); MEAN CORPUSCULAR VOLUME 90 fL (80-100); MONOCYTES # (AUTO) 0.5 K/uL (0.1-1.0); MONOCYTES % (AUTO) 6.3 % (2.0-9.0); NEUTROPHILS # (AUTO) 3.6 K/uL (1.8-7.7); NEUTROPHILS % (AUTO) 49.1 % (40.0-70.0); PLATELET COUNT (AUTO) 294 K/uL (150-450); RED BLOOD CELL COUNT(AUTO) 4.35 MIL/uL (4.00-5.20); RED CELL DISTRIBUTION WIDTH 13.9 % (11.5-14.5)
[2022-09-07 18:48] LABS: ANION GAP 12 mmol/L (8-16); CARBON DIOXIDE 22 mmol/L (22-29); CHLORIDE 103 mmol/L (98-107); CREATININE 0.77 mg/dL (0.60-1.30); GLOMERULAR FILTR. RATE CALC > 60 mL/min (>60); GLUCOSE,RANDOM 91 mg/dL (70-110); POTASSIUM 3.1 mmol/L (3.5-5.1); SODIUM SERUM 137 mmol/L (136-145); UREA NITROGEN, BLOOD 9 mg/dL (7-18)
[2022-09-07 18:54] LABS: ALANINE AMINOTRANSFERASE 23 U/L (12-78); ALKALINE PHOSPHATASE 70 U/L (46-116); ASPARTATE AMINOTRANSFERASE 22 U/L (15-37); BILIRUBIN,TOTAL 0.2 mg/dL (0.1-1.0)
[2022-09-07 19:08] LABS: AMPHET/METH SCREEN,URINE NEGATIVE (NEGATIVE); BARBITURATE SCREEN, URINE NEGATIVE (NEGATIVE); BENZODIAZEPINES SCREEN,URINE NEGATIVE (NEGATIVE); CANNABINOID SCREEN,URINE NEGATIVE (NEGATIVE); COCAINE SCREEN,URINE NEGATIVE (NEGATIVE); METHADONE SCREEN, URINE NEGATIVE (NEGATIVE); OPIATE SCREEN,URINE NEGATIVE (NEGATIVE); PHENCYCLIDINE SCREEN,URINE NEGATIVE (NEGATIVE)
[2022-09-07 19:22] LABS: ACETAMINOPHEN < 2 mcg/mL (10-30)
[2022-09-07] MEDS ORDERED: POTASSIUM CHLORIDE 10% 40 MEQ/30 ML LIQUID UDCUP PO ONE (21:45)
[2022-09-07 22:02] LABS: COVID AG,FIA SOURCE NASAL SWAB
[2022-09-07] MEDS ORDERED: ZOLPIDEM TARTRATE 10 MG TABLET PO PRN (22:15)
[2022-09-07] MEDS ORDERED: HALOPERIDOL 5 MG TABLET PO PRN (22:15)
[2022-09-07] MEDS ORDERED: LORazepam 2 MG TABLET PO PRN (22:15)
[2022-09-08 00:27] LABS: ALANINE AMINOTRANSFERASE 21 U/L (12-78); ALBUMIN 3.7 g/dL (3.4-5.0); ALKALINE PHOSPHATASE 63 U/L (46-116); ANION GAP 10 mmol/L (8-16); ASPARTATE AMINOTRANSFERASE 20 U/L (15-37); BILIRUBIN,TOTAL 0.2 mg/dL (0.1-1.0); CALCIUM, TOTAL 8.5 mg/dL (8.8-10.5); CARBON DIOXIDE 24 mmol/L (22-29); CHLORIDE 103 mmol/L (98-107); CREATININE 0.66 mg/dL (0.60-1.30); GLUCOSE,RANDOM 86 mg/dL (70-110); POTASSIUM 3.1 mmol/L (3.5-5.1); SODIUM SERUM 137 mmol/L (136-145); TOTAL PROTEIN, SERUM 8.3 g/dL (6.4-8.2); UREA NITROGEN, BLOOD 7 mg/dL (7-18)
[2022-09-08 00:29] LABS: GLOMERULAR FILTR. RATE CALC > 60 mL/min (>60)
[2022-09-08] MEDS ORDERED: POTASSIUM CHLORIDE 20 MEQ ER TABLET ONE (01:10)
[2022-09-08] MEDS ORDERED: POTASSIUM CHLORIDE 20 MEQ ER TABLET PO ONE (01:15)
[2022-09-08 03:15] VITALS: BP 123/83
[2022-09-08] MEDS ORDERED: INFLUENZA VIRUS VACCINE QVS 2022-23 (6MO+)/PF 60 MCG/0.5 ML SYRINGE IM. ONE (05:15)
[2022-09-08 08:31] VITALS: BP 122/85
[2022-09-08] MEDS: PARoxetine HCL 20 MG TABLET PO SCH (10:59)
[2022-09-08] MEDS ORDERED: MAGNESIUM HYDROXIDE SUSPENSION 30 ML UDCUP PO PRN (12:15)
[2022-09-08] MEDS ORDERED: ALBUTEROL SULFATE HFA 90 MCG/PUFF 8 GM INHALER IH PRN (12:15)
[2022-09-08] MEDS ORDERED: ONDANSETRON HCL 4 MG TABLET PO PRN (12:15)
[2022-09-08] MEDS ORDERED: DOCUSATE SODIUM 100 MG CAPSULE PO PRN (12:15)
[2022-09-08] MEDS ORDERED: LOPERAMIDE HCL 2 MG CAPSULE PO PRN (12:15)
[2022-09-08] MEDS ORDERED: ACETAMINOPHEN 325 MG TABLET PO PRN (12:15)
[2022-09-08] MEDS ORDERED: MAG HYDROX/AL HYDROX/SIMETH ES 30 ML SUSPENSION UDCUP PO PRN (12:15)
[2022-09-08] MEDS ORDERED: GuaiFENesin/D-METHORPHAN [SUGAR-FREE] 200-20MG/10 ML SYRUP UDCUP PO PRN (12:15)
[2022-09-08] MEDS ORDERED: NICOTINE 14 MG/24 HOUR PATCH TD PRN (12:15)
[2022-09-08] MEDS ORDERED: PETROLATUM,WHITE 28 GM JELLY TP PRN (12:15)
[2022-09-08] MEDS ORDERED: CloNIDine HCL 0.1 MG TABLET PO PRN (12:15)
[2022-09-08] MEDS: MELATONIN 3 MG TABLET PO SCH (20:12)
[2022-09-08 20:53] VITALS: BP 128/82
[2022-09-09 09:13] VITALS: BP 121/56
[2022-09-09] MEDS: PARoxetine HCL 20 MG TABLET PO SCH (10:07)
[2022-09-09] MEDS: IBUPROFEN 400 MG TABLET PO PRN (12:41)
[2022-09-09] MEDS: MELATONIN 3 MG TABLET PO SCH (20:34)
[2022-09-09 20:52] VITALS: BP 138/85
[2022-09-10] MEDS: PARoxetine HCL 20 MG TABLET PO SCH (08:24)
[2022-09-10 08:43] VITALS: BP 112/79
[2022-09-10] MEDS: IBUPROFEN 400 MG TABLET PO PRN (15:41)
[2022-09-10 20:25] VITALS: BP 135/83
[2022-09-10] MEDS: MELATONIN 3 MG TABLET PO SCH (20:44)
[2022-09-11 08:29] VITALS: BP 117/61
[2022-09-11] MEDS: PARoxetine HCL 20 MG TABLET PO SCH (08:29)
[2022-09-11] MEDS ORDERED: PARO-37 PO (10:01)
[2022-09-11] MEDS ORDERED: MELA3TAB89 PO (10:01)
== END 2022-09-11 10:00 | disposition home or self-care (01) | DRG 754 ==
LOC: EMS 17:52 → B2S 09-08 00:59
PROVIDERS: ADMIT Psychiatry & Neurology Child & Adolescent Psychiatry; ATTEND Psychiatry & Neurology Child & Adolescent Psychiatry
DX: F32.9 Major depressive disorder, single episode, unspecified (principal); R45.851 Suicidal ideations; Z20.822 Contact with and (suspected) exposure to COVID-19; E87.6 Hypokalemia; F10.129 Alcohol abuse with intoxication, unspecified; I10 Essential (primary) hypertension; Y90.9 Presence of alcohol in blood, level not specified; K21.9 Gastro-esophageal reflux disease without esophagitis; Z87.891 Personal history of nicotine dependence
CPT/HCPCS: 80053; 80307; 84703; 85025; 93005; 99285; G0480; G0481

== ENCOUNTER 2023-02-27 17:17 | Inpatient (IN) | payer OTHER ==
[~2023-02-27] VITALS: Ht 152.4 cm; Wt 68.7 kg
[~2023-02-27 17:17] MED LIST changes: +ASPI-1450 PO; +ATOR20TA86 PO; -NALT50TA PO; -OMEG-135 PO
[2023-02-27 17:41] LABS: BASOPHILS % (AUTO) 1.4 % (0.0-2.0); EOSINOPHILS % (AUTO) 1.4 % (1.0-6.0); HEMATOCRIT 39.5 % (36-46); HEMOGLOBIN 12.8 g/dL (12.0-16.0); LYMPHOCYTES # (AUTO) 2.3 K/uL (1.0-4.8); LYMPHOCYTES % (AUTO) 30.2 % (22.0-44.0); MEAN CORPUSCULAR HEMOGLOBIN 29.1 pg (26.0-34.0); MEAN CORPUSCULAR HGB CONC 32.4 G/dL (31.0-37.0); MEAN CORPUSCULAR VOLUME 90 fL (80-100); MONOCYTES # (AUTO) 0.5 K/uL (0.1-1.0); MONOCYTES % (AUTO) 7.1 % (2.0-9.0); NEUTROPHILS # (AUTO) 4.5 K/uL (1.8-7.7); NEUTROPHILS % (AUTO) 59.9 % (40.0-70.0); PLATELET COUNT (AUTO) 404 K/uL (150-450); RED BLOOD CELL COUNT(AUTO) 4.39 MIL/uL (4.00-5.20); RED CELL DISTRIBUTION WIDTH 14.7 % (11.5-14.5)
[2023-02-27 17:45] LABS: GLUCOSE,POINT OF CARE 114 MG/DL (70-110)
[2023-02-27 17:54] LABS: ANION GAP 11 mmol/L (8-16); CARBON DIOXIDE 24 mmol/L (22-29); CHLORIDE 105 mmol/L (98-107); GLOMERULAR FILTR. RATE CALC > 60 mL/min (>60); GLUCOSE,RANDOM 116 mg/dL (70-110); POTASSIUM 3.5 mmol/L (3.5-5.1); SODIUM SERUM 140 mmol/L (136-145); UREA NITROGEN, BLOOD 12 mg/dL (7-18)
[2023-02-27 18:01] LABS: LACTIC ACID 1.6 mmol/L (0.4-2.0)
[2023-02-27 18:04] LABS: HCG,QUANTITATIVE 1 mIU/mL (0-6); PHOSPHORUS 3.5 mg/dL (2.5-4.9)
[2023-02-27 18:08] LABS: ACETAMINOPHEN < 2 mcg/mL (10-30); ALANINE AMINOTRANSFERASE 35 U/L (12-78); ALBUMIN 3.8 g/dL (3.4-5.0); ALKALINE PHOSPHATASE 68 U/L (46-116); ASPARTATE AMINOTRANSFERASE 28 U/L (15-37); TOTAL PROTEIN, SERUM 8.6 g/dL (6.4-8.2)
[2023-02-27 18:09] LABS: BILIRUBIN,TOTAL 0.1 mg/dL (0.1-1.0)
[2023-02-27 18:36] LABS: SALICYLATE 0.8 mg/dL (2.8-20.0)
[2023-02-27 18:51] LABS: COVID AG,FIA SOURCE NASOPHARYNGEAL
[2023-02-27 19:00] LABS: APPEARANCE,URINE CLEAR (CLEAR); BILIRUBIN,URINE NEGATIVE (NEGATIVE); GLUCOSE, URINE (UA) NEGATIVE (NEGATIVE); KETONES,URINE NEGATIVE (NEGATIVE); LEUKOCYTE ESTERASE ,URINE NEGATIVE (NEGATIVE); NITRATE,URINE NEGATIVE (NEGATIVE); OCCULT BLOOD,URINE NEGATIVE (NEGATIVE); PROTEIN,URINE NEGATIVE (NEGATIVE); SPECIFIC GRAVITIY, URINE 1.005 (1.003-1.030); UROBILINOGEN,URINE <=1.0 mg/dL (<=1.0)
[2023-02-27 19:26] LABS: AMPHET/METH SCREEN,URINE NEGATIVE (NEGATIVE); BARBITURATE SCREEN, URINE NEGATIVE (NEGATIVE); BENZODIAZEPINES SCREEN,URINE NEGATIVE (NEGATIVE); CANNABINOID SCREEN,URINE NEGATIVE (NEGATIVE); COCAINE SCREEN,URINE NEGATIVE (NEGATIVE); METHADONE SCREEN, URINE NEGATIVE (NEGATIVE); OPIATE SCREEN,URINE NEGATIVE (NEGATIVE); PHENCYCLIDINE SCREEN,URINE NEGATIVE (NEGATIVE)
[2023-02-27] MEDS: ACETAMINOPHEN 325 MG TABLET PO PRN (20:16)
[2023-02-27 20:48] LABS: AMORPHOUS SEDIMENT,UR Few /LPF (None Seen); BACTERIA,URINE None Seen /HPF (None Seen); RBC,URINE 0-2 /HPF (0-2); SQUAMOUS EPITHELIAL CELL,UR Few /LPF (None Seen); WBC,URINE 0-2 /HPF (0-5)
[2023-02-27] MEDS ORDERED: LORazepam 2 MG TABLET PO PRN (22:00)
[2023-02-27] MEDS ORDERED: LevETIRAcetam 1,000 MG in DEXTROSE 5%-WATER 100 ML IV ONE (22:00)
[2023-02-28] MEDS: RINGERS SOLUTION,LACTATED 1,000 ML IV SCH ×2 (03:40→17:24)
[2023-02-28 06:54] LABS: BASOPHILS % (AUTO) 2.5 % (0.0-2.0); EOSINOPHILS % (AUTO) 2.7 % (1.0-6.0); HEMATOCRIT 38.5 % (36-46); HEMOGLOBIN 12.8 g/dL (12.0-16.0); LYMPHOCYTES # (AUTO) 2.8 K/uL (1.0-4.8); LYMPHOCYTES % (AUTO) 46.1 % (22.0-44.0); MEAN CORPUSCULAR HEMOGLOBIN 29.8 pg (26.0-34.0); MEAN CORPUSCULAR HGB CONC 33.2 G/dL (31.0-37.0); MEAN CORPUSCULAR VOLUME 90 fL (80-100); MONOCYTES # (AUTO) 0.5 K/uL (0.1-1.0); MONOCYTES % (AUTO) 9.1 % (2.0-9.0); NEUTROPHILS # (AUTO) 2.4 K/uL (1.8-7.7); NEUTROPHILS % (AUTO) 39.6 % (40.0-70.0); PLATELET COUNT (AUTO) 385 K/uL (150-450); RED BLOOD CELL COUNT(AUTO) 4.28 MIL/uL (4.00-5.20); RED CELL DISTRIBUTION WIDTH 14.9 % (11.5-14.5)
[2023-02-28] MEDS ORDERED: LORazepam 2 MG TABLET PO PRN (07:00)
[2023-02-28 08:40] LABS: ANION GAP 12 mmol/L (8-16); CALCIUM, TOTAL 8.9 mg/dL (8.8-10.5); CARBON DIOXIDE 25 mmol/L (22-29); CHLORIDE 108 mmol/L (98-107); CREATININE 0.65 mg/dL (0.60-1.30); GLOMERULAR FILTR. RATE CALC > 60 mL/min (>60); GLUCOSE,RANDOM 93 mg/dL (70-110); POTASSIUM 3.7 mmol/L (3.5-5.1); SODIUM SERUM 145 mmol/L (136-145); UREA NITROGEN, BLOOD 15 mg/dL (7-18)
[2023-02-28] MEDS ORDERED: GADOTERATE MEGLUMINE 10 MMOL/20 ML VIAL IVP ONE (08:45)
[2023-02-28] MEDS ORDERED: LORazepam 2 MG TABLET PO SCH (09:00)
[2023-02-28 09:40] VITALS: BP 138/60
[2023-02-28] MEDS: ACETAMINOPHEN 325 MG TABLET PO PRN (10:08)
[2023-02-28] MEDS ORDERED: LORazepam 2 MG/ML VIAL IVP PRN (11:30)
[2023-02-28] MEDS: FOLIC ACID 1 MG TABLET PO SCH (11:43)
[2023-02-28] MEDS: MULTIVITAMINS, THERAPEUTIC TABLET PO SCH (11:43)
[2023-02-28] MEDS: THIAMINE 100 MG TABLET PO SCH (11:43)
[2023-02-28 12:00] VITALS: BP 147/90
[2023-02-28] MEDS ORDERED: ESCI20TA37 PO (12:20)
[2023-02-28] MEDS: ESCITALOPRAM OXALATE 20 MG TABLET PO SCH (14:23)
[2023-02-28 16:04] VITALS: BP 108/71
[2023-02-28 21:21] VITALS: BP 128/71
[2023-03-01 00:23] VITALS: BP 122/62
[2023-03-01 04:40] VITALS: BP 135/69
[2023-03-01] MEDS: RINGERS SOLUTION,LACTATED 1,000 ML IV SCH (06:43)
[2023-03-01 06:50] LABS: BASOPHILS % (AUTO) 0.9 % (0.0-2.0); EOSINOPHILS % (AUTO) 2.1 % (1.0-6.0); HEMATOCRIT 35.1 % (36-46); HEMOGLOBIN 11.8 g/dL (12.0-16.0); LYMPHOCYTES # (AUTO) 2.9 K/uL (1.0-4.8); LYMPHOCYTES % (AUTO) 39.6 % (22.0-44.0); MEAN CORPUSCULAR HEMOGLOBIN 30.1 pg (26.0-34.0); MEAN CORPUSCULAR HGB CONC 33.6 G/dL (31.0-37.0); MEAN CORPUSCULAR VOLUME 90 fL (80-100); MONOCYTES # (AUTO) 0.6 K/uL (0.1-1.0); MONOCYTES % (AUTO) 7.9 % (2.0-9.0); NEUTROPHILS # (AUTO) 3.6 K/uL (1.8-7.7); NEUTROPHILS % (AUTO) 49.5 % (40.0-70.0); PLATELET COUNT (AUTO) 367 K/uL (150-450); RED BLOOD CELL COUNT(AUTO) 3.93 MIL/uL (4.00-5.20); RED CELL DISTRIBUTION WIDTH 14.4 % (11.5-14.5)
[2023-03-01 07:02] LABS: ANION GAP 8 mmol/L (8-16); CALCIUM, TOTAL 8.9 mg/dL (8.8-10.5); CARBON DIOXIDE 28 mmol/L (22-29); CHLORIDE 104 mmol/L (98-107); CREATININE 0.62 mg/dL (0.60-1.30); GLOMERULAR FILTR. RATE CALC > 60 mL/min (>60); GLUCOSE,RANDOM 81 mg/dL (70-110); POTASSIUM 3.3 mmol/L (3.5-5.1); SODIUM SERUM 140 mmol/L (136-145); UREA NITROGEN, BLOOD 17 mg/dL (7-18)
[2023-03-01 07:52] VITALS: BP 133/73
[2023-03-01] MEDS: ESCITALOPRAM OXALATE 20 MG TABLET PO SCH (08:09)
[2023-03-01] MEDS: FOLIC ACID 1 MG TABLET PO SCH (08:09)
[2023-03-01] MEDS: THIAMINE 100 MG TABLET PO SCH (08:09)
[2023-03-01] MEDS: ACETAMINOPHEN 325 MG TABLET PO PRN ×3 (08:09→19:57)
[2023-03-01] MEDS: MULTIVITAMINS, THERAPEUTIC TABLET PO SCH (08:09)
[2023-03-01] MEDS ORDERED: POTASSIUM CHLORIDE 20 MEQ ER TABLET PO ONE (09:15)
[2023-03-01] MEDS ORDERED: ONDANSETRON HCL 4 MG TABLET PO ONE (09:15)
[2023-03-01 11:58] VITALS: BP 138/63
[2023-03-01 16:20] VITALS: BP 130/70
[2023-03-01 19:35] VITALS: BP 142/72
[2023-03-02 00:16] VITALS: BP 132/74
[2023-03-02] MEDS: RINGERS SOLUTION,LACTATED 1,000 ML IV SCH ×2 (01:48→08:50)
[2023-03-02 05:05] VITALS: BP 123/50
[2023-03-02] MEDS ORDERED: LORazepam 1 MG TABLET PO PRN (07:00)
[2023-03-02 08:17] VITALS: BP 129/65
[2023-03-02] MEDS: MULTIVITAMINS, THERAPEUTIC TABLET PO SCH (08:18)
[2023-03-02] MEDS: FOLIC ACID 1 MG TABLET PO SCH (08:18)
[2023-03-02] MEDS: ESCITALOPRAM OXALATE 20 MG TABLET PO SCH (08:18)
[2023-03-02] MEDS: THIAMINE 100 MG TABLET PO SCH (08:18)
[2023-03-02] MEDS ORDERED: LORazepam 1 MG TABLET PO SCH (09:00)
[2023-03-02 12:13] VITALS: BP 129/61
[2023-03-02] MEDS ORDERED: FOLI-130 PO (13:49)
[2023-03-02] MEDS ORDERED: MULT-1366 PO (13:51)
[2023-03-02] MEDS ORDERED: THIA100T80 PO (13:52)
[2023-03-03] MEDS ORDERED: LORazepam 1 MG TABLET PO PRN (07:00)
== END 2023-03-02 16:01 | disposition home or self-care (01) | DRG 817 ==
LOC: EMS 17:17 → 5S 02-28 06:14
PROVIDERS: ADMIT Internal Medicine; ATTEND Internal Medicine
DX: T42.6X2A Poisoning by other antiepileptic and sedative-hypnotic drugs, intentional self-harm, initial encounter (principal); G92.8 Other toxic encephalopathy; F33.2 Major depressive disorder, recurrent severe without psychotic features; F10.20 Alcohol dependence, uncomplicated; F41.9 Anxiety disorder, unspecified; I10 Essential (primary) hypertension; Z20.822 Contact with and (suspected) exposure to COVID-19; Y90.8 Blood alcohol level of 240 mg/100 ml or more; Z79.899 Other long term (current) drug therapy; Z79.82 Long term (current) use of aspirin; Y92.89 Other specified places as the place of occurrence of the external cause
CPT/HCPCS: 70553; 71045; 80048; 80053; 80307; 81001; 82948; 82962; 83605; 83735; 84100; 84132; 84484; 84702; 85025; 86850; 86900; 86901; 92523; 92610; 93005; 99291; G0480; G0481; J0712; J7060; J7120; Q0162; 36415-L1; 36415-TC; 70450; 70450-TC

== ENCOUNTER 2023-03-04 17:25 | Emergency (ER) | payer OTHER ==
[~2023-03-04] VITALS: Ht 152.4 cm; Wt 65.9 kg
[~2023-03-04 17:25] MED LIST changes: +ESCI20TA37 PO; +FOLI-130 PO; +MULT-1366 PO; -PARO-37 PO; +THIA100T80 PO
[2023-03-04] MEDS ORDERED: KETOROLAC TROMETHAMINE 30 MG/ML VIAL IM ONE (23:45)
[2023-03-04] MEDS ORDERED: ACETAMINOPHEN 500 MG TABLET PO ONE (23:45)
[2023-03-05 00:05] LABS: BASOPHILS % (AUTO) 1.2 % (0.0-2.0); HEMATOCRIT 40.4 % (36-46); HEMOGLOBIN 13.5 g/dL (12.0-16.0); MEAN CORPUSCULAR HGB CONC 33.4 G/dL (31.0-37.0); MONOCYTES # (AUTO) 0.5 K/uL (0.1-1.0); RED CELL DISTRIBUTION WIDTH 14.8 % (11.5-14.5)
[2023-03-05 00:10] LABS: EOSINOPHILS % (AUTO) 1.7 % (1.0-6.0); LYMPHOCYTES # (AUTO) 3.9 K/uL (1.0-4.8); LYMPHOCYTES % (AUTO) 48.5 % (22.0-44.0); MEAN CORPUSCULAR HEMOGLOBIN 29.8 pg (26.0-34.0); MEAN CORPUSCULAR VOLUME 89 fL (80-100); MONOCYTES % (AUTO) 6.4 % (2.0-9.0); NEUTROPHILS # (AUTO) 3.4 K/uL (1.8-7.7); NEUTROPHILS % (AUTO) 42.2 % (40.0-70.0); PLATELET COUNT (AUTO) 407 K/uL (150-450); RED BLOOD CELL COUNT(AUTO) 4.53 MIL/uL (4.00-5.20)
[2023-03-05 00:16] LABS: ANION GAP 8 mmol/L (8-16); CALCIUM, TOTAL 9.1 mg/dL (8.8-10.5); CARBON DIOXIDE 28 mmol/L (22-29); CHLORIDE 105 mmol/L (98-107); GLOMERULAR FILTR. RATE CALC > 60 mL/min (>60); GLUCOSE,RANDOM 86 mg/dL (70-110); SODIUM SERUM 141 mmol/L (136-145); UREA NITROGEN, BLOOD 10 mg/dL (7-18)
[2023-03-05 00:22] LABS: ALANINE AMINOTRANSFERASE 29 U/L (12-78); ALBUMIN 4.2 g/dL (3.4-5.0); ALKALINE PHOSPHATASE 70 U/L (46-116); ASPARTATE AMINOTRANSFERASE 32 U/L (15-37); BILIRUBIN,TOTAL 0.1 mg/dL (0.1-1.0); TOTAL PROTEIN, SERUM 9.1 g/dL (6.4-8.2)
[2023-03-05 01:00] VITALS: BP 124/64
== END 2023-03-05 01:58 | disposition home or self-care (01) ==
LOC: EMS 17:25
DX: F10.129 Alcohol abuse with intoxication, unspecified (principal); R51.9 Headache, unspecified; F41.9 Anxiety disorder, unspecified; F32.A Depression, unspecified; I10 Essential (primary) hypertension
CPT/HCPCS: 99283; 80053; 85025; 36415; 96372; G0480; J1885

== ENCOUNTER 2023-04-26 10:25 | Inpatient (IN) | payer MEDICAID, OTHER ==
[~2023-04-26] VITALS: Ht 162.6 cm; Wt 65.3 kg
[~2023-04-26 10:25] MED LIST changes: +ATOR20TA PO; -ATOR20TA86 PO; -ESCI20TA37 PO; -FOLI-130 PO; -MELA5TAB40 PO; -THIA100T80 PO
[2023-04-26] MEDS ORDERED: PANT40TA54 PO (12:27)
[2023-04-26] MEDS ORDERED: AMLO2.5T29 PO (12:27)
[2023-04-26] MEDS ORDERED: HYDR200T76 PO (12:27)
[2023-04-26] MEDS ORDERED: ESCI20TA37 PO (12:27)
[2023-04-26] MEDS ORDERED: OLANZapine 5 MG RAPDIS TABLET PO PRN (12:30)
[2023-04-26] MEDS ORDERED: ZOLPIDEM TARTRATE 10 MG TABLET PO PRN (12:30)
[2023-04-26] MEDS ORDERED: LORazepam 2 MG TABLET PO PRN (12:30)
[2023-04-26 13:07] LABS: BASOPHILS % (AUTO) 2.6 % (0.0-2.0); EOSINOPHILS % (AUTO) 1.4 % (1.0-6.0); HEMOGLOBIN 12.7 g/dL (12.0-16.0); LYMPHOCYTES # (AUTO) 3.6 K/uL (1.0-4.8); LYMPHOCYTES % (AUTO) 48.1 % (22.0-44.0); MEAN CORPUSCULAR HEMOGLOBIN 28.6 pg (26.0-34.0); MEAN CORPUSCULAR HGB CONC 32.6 G/dL (31.0-37.0); MEAN CORPUSCULAR VOLUME 88 fL (80-100); MONOCYTES # (AUTO) 0.6 K/uL (0.1-1.0); MONOCYTES % (AUTO) 7.3 % (2.0-9.0); NEUTROPHILS # (AUTO) 3.1 K/uL (1.8-7.7); NEUTROPHILS % (AUTO) 40.6 % (40.0-70.0); PLATELET COUNT (AUTO) 426 K/uL (150-450); RED BLOOD CELL COUNT(AUTO) 4.46 MIL/uL (4.00-5.20); RED CELL DISTRIBUTION WIDTH 15.1 % (11.5-14.5)
[2023-04-26 13:11] LABS: ANION GAP 17 mmol/L (8-16); CALCIUM, TOTAL 8.2 mg/dL (8.8-10.5); CARBON DIOXIDE 23 mmol/L (22-29); CHLORIDE 105 mmol/L (98-107); CREATININE 0.55 mg/dL (0.60-1.30); GLOMERULAR FILTR. RATE CALC > 60 mL/min (>60); GLUCOSE,RANDOM 83 mg/dL (70-110); POTASSIUM 3.5 mmol/L (3.5-5.1); SODIUM SERUM 145 mmol/L (136-145)
[2023-04-26 13:17] LABS: ALANINE AMINOTRANSFERASE 21 U/L (12-78); ALBUMIN 3.7 g/dL (3.4-5.0); ALKALINE PHOSPHATASE 68 U/L (46-116); ASPARTATE AMINOTRANSFERASE 23 U/L (15-37); BILIRUBIN,TOTAL 0.3 mg/dL (0.1-1.0); TOTAL PROTEIN, SERUM 8.4 g/dL (6.4-8.2)
[2023-04-26 18:56] LABS: AMPHET/METH SCREEN,URINE NEGATIVE (NEGATIVE); BARBITURATE SCREEN, URINE NEGATIVE (NEGATIVE); BENZODIAZEPINES SCREEN,URINE NEGATIVE (NEGATIVE); CANNABINOID SCREEN,URINE NEGATIVE (NEGATIVE); COCAINE SCREEN,URINE NEGATIVE (NEGATIVE); METHADONE SCREEN, URINE NEGATIVE (NEGATIVE); OPIATE SCREEN,URINE NEGATIVE (NEGATIVE); PHENCYCLIDINE SCREEN,URINE NEGATIVE (NEGATIVE)
[2023-04-26 20:44] LABS: COVID AG,FIA SOURCE NASOPHARYNGEAL
[2023-04-26 22:11] LABS: APPEARANCE,URINE TURBID (CLEAR); BILIRUBIN,URINE NEGATIVE (NEGATIVE); GLUCOSE, URINE (UA) NEGATIVE (NEGATIVE); KETONES,URINE NEGATIVE (NEGATIVE); LEUKOCYTE ESTERASE ,URINE NEGATIVE (NEGATIVE); NITRATE,URINE NEGATIVE (NEGATIVE); OCCULT BLOOD,URINE NEGATIVE (NEGATIVE); PH,URINE 5.5 (5.0-8.0); PROTEIN,URINE TRACE mg/dL (NEGATIVE); SPECIFIC GRAVITIY, URINE 1.022 (1.003-1.030); UROBILINOGEN,URINE <=1.0 mg/dL (<=1.0)
[2023-04-26 22:23] VITALS: BP 148/70; PULSE 59; RESP 18; TEMP 98; O2SAT 98
[2023-04-27] MEDS ORDERED: LOPERAMIDE HCL 2 MG CAPSULE PO PRN
[2023-04-27] MEDS ORDERED: PETROLATUM,WHITE 28 GM JELLY TP PRN
[2023-04-27] MEDS ORDERED: ACETAMINOPHEN 325 MG TABLET PO PRN
[2023-04-27] MEDS ORDERED: BACITRACIN 28 GM OINTMENT TP PRN
[2023-04-27] MEDS ORDERED: MAG HYDROX/AL HYDROX/SIMETH ES 30 ML SUSPENSION UDCUP PO PRN
[2023-04-27] MEDS ORDERED: CloNIDine HCL 0.1 MG TABLET PO PRN
[2023-04-27] MEDS ORDERED: ONDANSETRON HCL 4 MG TABLET PO PRN
[2023-04-27] MEDS ORDERED: OMEPRAZOLE 20 MG CAPSULE PO PRN
[2023-04-27] MEDS ORDERED: ALBUTEROL SULFATE HFA 90 MCG/PUFF 8 GM INHALER IH PRN
[2023-04-27] MEDS ORDERED: BENZOCAINE/MENTHOL LOZENGE PO PRN
[2023-04-27] MEDS ORDERED: DOCUSATE SODIUM 100 MG CAPSULE PO PRN
[2023-04-27] MEDS ORDERED: MAGNESIUM HYDROXIDE SUSPENSION 30 ML UDCUP PO PRN
[2023-04-27 08:00] VITALS: BP 132/72; PULSE 60; RESP 18; TEMP 97.1; O2SAT 98
[2023-04-27] MEDS: ATORVASTATIN CALCIUM 20 MG TABLET PO SCH (09:10)
[2023-04-27] MEDS: MULTIVITAMINS WITH MINERALS, THERAPEUTIC TABLET PO SCH (09:10)
[2023-04-27] MEDS: ASPIRIN 81 MG CHEWABLE TABLET PO SCH (09:10)
[2023-04-27 11:33] VITALS: BP 129/94; PULSE 101; RESP 17; TEMP 97.9
[2023-04-27] MEDS: IBUPROFEN 600 MG TABLET PO PRN ×2 (11:33→17:37)
[2023-04-27] MEDS: ESCITALOPRAM OXALATE 10 MG TABLET PO SCH (16:10)
[2023-04-27 17:37] VITALS: BP 136/63; PULSE 82; RESP 17; TEMP 97.5
[2023-04-27 18:37] VITALS: BP 132/68; PULSE 79; RESP 17; TEMP 98
[2023-04-27 20:48] VITALS: BP 124/72; PULSE 65; RESP 18; TEMP 97.5; O2SAT 100
[2023-04-28] MEDS: ASPIRIN 81 MG CHEWABLE TABLET PO SCH (07:56)
[2023-04-28] MEDS: ESCITALOPRAM OXALATE 10 MG TABLET PO SCH (07:56)
[2023-04-28] MEDS: MULTIVITAMINS WITH MINERALS, THERAPEUTIC TABLET PO SCH (07:56)
[2023-04-28] MEDS: ATORVASTATIN CALCIUM 20 MG TABLET PO SCH (07:56)
[2023-04-28] MEDS: IBUPROFEN 600 MG TABLET PO PRN (07:59)
[2023-04-28 08:00] VITALS: BP 118/79; PULSE 69; RESP 18; TEMP 97.2
== END 2023-04-28 12:48 | disposition home or self-care (01) | DRG 751 ==
LOC: EMS 10:28 → 3EI 19:45 → UNDOADMIN 19:45 → 3EI 19:46
PROVIDERS: ADMIT Psychiatry & Neurology Psychiatry; ATTEND Psychiatry & Neurology Psychiatry
DX: F33.2 Major depressive disorder, recurrent severe without psychotic features (principal); R45.851 Suicidal ideations; Z20.822 Contact with and (suspected) exposure to COVID-19; F10.129 Alcohol abuse with intoxication, unspecified; I10 Essential (primary) hypertension; F41.9 Anxiety disorder, unspecified; Z79.899 Other long term (current) drug therapy; Z79.82 Long term (current) use of aspirin
CPT/HCPCS: 80053; 80307; 81003; 85025; 87081; 99285; G0480; J3535

== ENCOUNTER 2023-07-28 13:24 | Emergency (ER) | payer MEDICAID, OTHER ==
[~2023-07-28] VITALS: Ht 160 cm; Wt 68.2 kg
[~2023-07-28 13:24] MED LIST changes: -MULT-1366 PO
[2023-07-28 13:36] VITALS: TEMP 98.7
[2023-07-28] MEDS ORDERED: TraMADol HCL 50 MG TABLET PO ONE (15:00)
[2023-07-28] MEDS ORDERED: KETOROLAC TROMETHAMINE 30 MG/ML VIAL IM ONE (15:00)
[2023-07-28] MEDS ORDERED: TRAM-559 PO (15:02)
[2023-07-28] MEDS ORDERED: LIDO1ADH63 TP (15:02)
[2023-07-28] MEDS ORDERED: PRED-554 PO (15:02)
[2023-07-28 15:30] VITALS: BP 134/78; PULSE 63; RESP 16
== END 2023-07-28 16:26 | disposition home or self-care (01) ==
LOC: EMS 13:31
DX: G89.29 Other chronic pain (principal); M25.512 Pain in left shoulder; F41.9 Anxiety disorder, unspecified; F32.A Depression, unspecified; I10 Essential (primary) hypertension; M54.2 Cervicalgia; F10.90 Alcohol use, unspecified, uncomplicated; Z98.890 Other specified postprocedural states
CPT/HCPCS: 99283; 73030; 96372; J1885

== ENCOUNTER 2023-08-19 19:29 | Emergency (ER) | payer OTHER ==
[~2023-08-19 19:29] MED LIST changes: -ASPI-1450 PO; -ATOR20TA PO; +LIDO1ADH63 TP; +PRED-554 PO; +TRAM-559 PO
== END 2023-08-19 22:50 | disposition left against medical advice (07) ==
LOC: EMS 19:30
DX: M25.571 Pain in right ankle and joints of right foot (principal); Z53.21 Procedure and treatment not carried out due to patient leaving prior to being seen by health care provider
CPT/HCPCS: 99281; Z7502